=== PATIENT | female | born 1955 | race Caucasian/White ===

== ENCOUNTER 2023-09-28 11:53 | Outpatient (RCR) | payer OTHER, SELFPAY | END 2023-09-28 23:59 | disposition home or self-care (01) | LOC: ROT 11:53 | PROVIDERS: ATTENDING PHYSICIAN Physician Assistant Medical; FAMILY PHYSICIAN Family Medicine; REFERRING PHYSICIAN Orthopaedic Surgery | DX: S42.491D Other displaced fracture of lower end of right humerus, subsequent encounter for fracture with routine healing (principal); M75.01 Adhesive capsulitis of right shoulder | CPT/HCPCS: 97010; 97110; 97140; 97162; 97166; 97535 ==

== ENCOUNTER 2023-10-20 09:16 | Outpatient (RCR) | payer OTHER, SELFPAY | END 2023-10-20 23:59 | disposition home or self-care (01) | LOC: ROT 09:16 | PROVIDERS: ATTENDING PHYSICIAN Physician Assistant Medical; FAMILY PHYSICIAN Family Medicine; REFERRING PHYSICIAN Orthopaedic Surgery | DX: S42.491D Other displaced fracture of lower end of right humerus, subsequent encounter for fracture with routine healing (principal); Z73.6 Limitation of activities due to disability | CPT/HCPCS: 97010; 97110; 97112; 97140; 97535 ==

== ENCOUNTER 2023-11-03 09:18 | Outpatient (RCR) | payer OTHER, SELFPAY | END 2023-11-03 23:59 | disposition home or self-care (01) | LOC: ROT 09:18 | PROVIDERS: ATTENDING PHYSICIAN Physician Assistant Medical; FAMILY PHYSICIAN Family Medicine; REFERRING PHYSICIAN Orthopaedic Surgery | DX: S42.491D Other displaced fracture of lower end of right humerus, subsequent encounter for fracture with routine healing (principal); Z73.6 Limitation of activities due to disability | CPT/HCPCS: 97010; 97110; 97140 ==